=== PATIENT | female | born 2005 | race Caucasian/White ===

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

== ENCOUNTER 2023-04-14 05:05 | Inpatient (IN) | payer OTHER, MEDICAID, SELFPAY ==
[2023-04-14] VITALS (40 sets, daily range): BP systolic 97–157; BP diastolic 55–86; PULSE 85–128; RESP 11–34; TEMP 36.4–37.3; O2SAT 94–100; BMI 26.6; BMI 25.3
--- NOTE | 2023-04-14 05:20 | DI.RAD.S_ITS ---
PROCEDURE: XR CHEST 1V INDICATIONS: chest pain TECHNIQUE: One view of the chest was acquired. COMPARISON: [facility], CR, XR CHEST 2V, 12/20/2022, 14:00. FINDINGS: Surgical changes and devices: None. Lungs and pleura: Lungs are clear. No pleural effusions or pneumothorax. Mediastinum: Mediastinal contours appear normal. Heart size is normal. Bones and chest wall: No suspicious bony lesions. Overlying soft tissues appear unremarkable. IMPRESSION: No acute cardiopulmonary abnormality. This report is concordant with the overnight preliminary interpretation. Dictated by: Marcos Marion M.D. on 04/14/2023 at 7:41 Approved by: Marcos Marion M.D. on 04/14/2023 at 7:42
--- NOTE | 2023-04-14 05:27 | ED_ITS ---
HPI - Altered Mental Status General Chief Complaint: Diabetic Problem Stated Complaint: dka Time Seen by Provider: 04/14/23 05:20 History of Present Illness HPI narrative: Patient is a 18-year-old female history of insulin-dependent diabetes presenting today with altered mental status and elevated glucose. He reports that she has been busy helping set up for a posterior event and has not been taking care of herself. At 1:00 a.m. she did not feel very well checked her glucose and it was 550. She now feels like she is having extreme chest pain she describes it as sharp and stabbing. She admits to smoking marijuana. She is previously been in the ED for alcohol intoxication. Admits to mental problems but unclear exactly what those are. She denies being sick no fever or chills no cough shortness of breath her superior she is having a FT orbital pain nausea or vomiting. Patient went to [place] and mom looked at the insulin pump and reports that she did not get insulin April 04 through April 11. And since then she has only been getting anywhere from 7-15 units subcutaneously. Related Data Home Medications Medication Instructions Recorded Confirmed escitalopram oxalate 10 mg tablet 10 mg PO DAILY 04/14/23 04/14/23 lamotrigine 25 mg tablet 25 mg PO 2XD 04/14/23 04/14/23 Allergies Allergy/AdvReac Type Severity Reaction Status Date / Time No Known Drug Allergies Allergy Unverified 10/09/21 18:12 Patient History Social History household members: family Smoking Status: Never smoker Smoking Status: Never smoker alcohol intake frequency: other Exam Initial Vital Signs Initial Vital Signs: Vital Signs Temperature 98.5 F 04/14/23 05:26 Pulse Rate 114 H 04/14/23 05:26 Respiratory Rate 26 H 04/14/23 05:26 Blood Pressure 140/86 04/14/23 05:26 Pulse Oximetry 98 04/14/23 05:26 Oxygen Delivery Method Room Air 04/14/23 05:26 GENERAL: Pale ill-appearing 18-year-old female and in no acute distress. HEENT: Head atraumatic,EOMI, pupils reactive, face symmetric, moist mucous membranes CARDIOVASCULAR: Tachycardic regular no murmur RESPIRATORY: Breath sounds equal bilaterally, no wheezes rales or rhonchi. ABDOMEN: Soft, nontender. Normoactive bowel sounds all 4 quadrants. No guarding or rebound. EXTREMITIES: Normal range of motion, no clubbing or edema. Neurovascularly intact NEUROLOGICAL: Alert and oriented x4.Normal gait and speech. Moving all extremities SKIN: Warm, dry, no laceration, no petechiae, no rashes or lesions. Course Orders Ordered: Acetaminophen (Acetaminophen 325 Mg Tablet) 650 mg PO Q4H PRN PRN Reason: Fever/Mild Pain (1-3) Escitalopram Oxalate (Escitalopram 10 Mg Tablet) 10 mg PO DAILY SAVAGE Sodium Chloride (Normal Saline 0.9%) 1,000 mls @ 100 mls/hr IV CONT SAVAGE Last Infusion: 04/14/23 11:30 Dose: Infused Documented By: Admin: 04/14/23 10:30 Dose: 100 mls/hr Documented By: KATHRIN INSULIN DRIP PREMIX (Myxredlin Drip Premix) 100 unit in 100 mls @ 7.031 mls/hr IV TITRATE SAVAGE; Protocol Last Admin: 04/14/23 12:39 Dose: 0.1 unit/kg/hr, 6.7 mls/hr Documented By: KOTA Co-signed By: VIOLETA Dextrose/Sodium Chloride (Dextrose 5%-0.45% Ns) 1,000 mls @ 100 mls/hr IV CONT SAVAGE Last Admin: 04/14/23 14:01 Dose: 100 mls/hr Documented By: KOTA Piperacillin Sod/Tazobactam (Sod 4.5 gm/ Sodium Chloride) 100 mls @ 25 mls/hr IV Q8H SAVAGE Last Admin: 04/14/23 16:14 Dose: 25 mls/hr Documented By: KOTA Sodium Chloride (Normal Saline 0.9%) 1,000 mls @ 500 mls/hr IV BOLUS ONE Stop: 04/14/23 18:29 Last Admin: 04/14/23 16:31 Dose: 500 mls/hr Documented By: KOTA Lamotrigine (Lamotrigine 100 Mg Tablet) 25 mg PO BID SAVAGE Naloxone HCl (Naloxone 0.4 Mg/Ml Vial) 0.2 mg IV Q2MIN PRN PRN Reason: Opiate Reversal Ondansetron HCl (Ondansetron 4 Mg/2 Ml Inj) 4 mg IV Q4HR PRN PRN Reason: Nausea And Vomiting Discontinued Medications Sodium Chloride (Normal Saline 0.9%) 1,000 mls @ 1,000 mls/hr IV BOLUS ONE Stop: 04/14/23 06:19 Last Infusion: 04/14/23 06:56 Dose: Infused Documented By: Admin: 04/14/23 05:34 Dose: 1,000 mls/hr Documented By: KRISH INSULIN DRIP PREMIX (Myxredlin Drip Premix) 100 unit in 100 mls @ 7.031 mls/hr IV TITRATE SAVAGE; Protocol Last Admin: 04/14/23 12:06 Dose: 0.1 unit/kg/hr, 7.031 mls/hr Documented By: KOTA Co-signed By: VIOLETA Titration: 04/14/23 12:06 Dose: Infused Documented By: KOTA Co-signed By: VIOLETA Titration: 04/14/23 11:45 Dose: 0.1 unit/kg/hr, 7.031 mls/hr Documented By: KATHRIN Co-signed By: YA Titration: 04/14/23 11:04 Dose: 0.1 unit/kg/hr, 7.031 mls/hr Documented By: SPF Co-signed By: YA Titration: 04/14/23 07:13 Dose: 0.15 unit/kg/hr, 10.5 mls/hr Documented By: MAJO Co-signed By: SPF Admin: 04/14/23 06:24 Dose: 0.1 unit/kg/hr, 7.031 mls/hr Documented By: MAJO Co-signed By: WILLA Calcium Chloride 1,000 mg/ (Sodium Chloride) 110 mls @ 110 mls/hr IV NOW ONE Stop: 04/14/23 06:06 Last Infusion: 04/14/23 08:05 Dose: Infused Documented By: Admin: 04/14/23 06:44 Dose: 110 mls/hr Documented By: ES Piperacillin Sod/Tazobactam (Sod 4.5 gm/ Sodium Chloride) 100 mls @ 200 mls/hr IV NOW ONE Stop: 04/14/23 06:06 Last Infusion: 04/14/23 07:36 Dose: Infused Documented By: Admin: 04/14/23 06:41 Dose: 200 mls/hr Documented By: MAJO Sodium Chloride (Normal Saline 0.9%) 1,641 mls @ 547 mls/hr 30 ml/kg infuse over 3 hr (1641 ml) IV NOW ONE Stop: 04/14/23 09:04 Last Infusion: 04/14/23 10:06 Dose: Infused Documented By: Admin: 04/14/23 06:40 Dose: 547 mls/hr Documented By: MAJO Dextrose/Sodium Chloride (Dextrose 5%-0.45% Ns) 1,000 mls @ 105 mls/hr IV CONT SAVAGE Last Infusion: 04/14/23 11:45 Dose: 105 mls/hr Documented By: Admin: 04/14/23 11:28 Dose: 105 mls/hr Documented By: YA Dextrose (D10w) 1,000 mls @ 134 mls/hr IV CONT SAVAGE Last Admin: 04/14/23 14:01 Dose: Not Given Documented By: KOTA Sodium Chloride (Normal Saline 0.9%) 1,000 mls @ 500 mls/hr IV BOLUS ONE Stop: 04/14/23 16:07 Last Admin: 04/14/23 14:14 Dose: 500 mls/hr Documented By: KOTA Ketorolac Tromethamine (Ketorolac 30 Mg/Ml Vial) 15 mg IV NOW ONE Stop: 04/14/23 05:48 Last Admin: 04/14/23 06:07 Dose: 15 mg Documented By: MAJO Sodium Chloride (Sodium Chloride 0.9% 500 Ml) 2,000 ml IV Q4HR ONE Stop: 04/14/23 14:03 Vital Signs Vital signs: Vital Signs - 8 hr 04/14/23 05:26 04/14/23 05:28 04/14/23 05:30 Temperature 98.5 F Pulse Rate 114 H 115 H Respiratory Rate 26 H 28 H Blood Pressure 140/86 157/74 H Pulse Oximetry 98 99 Oxygen Delivery Method Room Air 04/14/23 05:30 04/14/23 06:00 04/14/23 06:00 Temperature Pulse Rate 112 H 119 H Respiratory Rate 24 22 Blood Pressure 147/69 H Pulse Oximetry 99 100 Oxygen Delivery Method 04/14/23 06:30 04/14/23 06:33 04/14/23 06:33 Temperature Pulse Rate 112 H 109 H Respiratory Rate 22 21 Blood Pressure 154/67 H Pulse Oximetry 99 100 Oxygen Delivery Method 04/14/23 07:00 04/14/23 07:00 Temperature Pulse Rate 116 H Respiratory Rate 20 Blood Pressure 146/67 H Pulse Oximetry 99 Oxygen Delivery Method MDM - Altered Mental Status Lab Data 04/14/23 05:20 04/14/23 15:50 Labs: Lab Results 04/14/23 04/14/23 04/14/23 Range/Units 05:20 06:31 06:56 WBC 31.4 H* (4.5-11.0) X10^3/uL RBC 5.55 H (4.0-5.2) X10^6/uL Hgb 16.1 H (12.0-16.0) g/dL Hct 51.0 H (36-46) % MCV 91.9 (80-100) fL MCH 29.0 (26-34) PG MCHC 31.6 (30-36) % RDW 13.5 (11.6-14.8) % Plt Count 525 H (150-400) X10^3/uL Neut % (Auto) Not Reportable Lymph % (Auto) Not Reportable [place] % (Auto) Not Reportable Eos % (Auto) Not Reportable Baso % (Auto) Not Reportable Lymph # (Auto) Not Reportable [place] # (Auto) Not Reportable Baso # (Auto) Not Reportable Total Counted 100 Seg Neutrophils % 79.0 H (38-70) % Band Neutrophils % 1.0 L (3-7) % Lymphocytes % (Manual) 11.0 L (25-45) % Monocytes % (Manual) 7.0 (2-11) % Metamyelocytes % 2.0 H (-0) % Neutrophils # (Manual) 81934 H (1891-3285) /uL Platelet Estimate Increased on smear RBC Morphology Normal morphology VBG pH 7.01 L* (7.33-7.43) VBG pCO2 23.2 L (45-50) mmHg VBG pO2 61 H (35-45) mmHg VBG HCO3 6 L (24-28) mmol/L VBG Total CO2 6 L (24-29) mmol/L VBG O2 Saturation 77 H (70-75) % VBG Base Excess -25.0 L (0-4) mmol/L Sodium 136 L (137-145) mmol/L Potassium 6.7 H* (3.4-5.1) mmol/L Chloride 99 (98-107) mmol/L Carbon Dioxide < 5 L* (22-32) mmol/L BUN 24 H (7-17) mg/dL Creatinine 1.12 H (0.52-1.04) mg/dL Estimated GFR > 60 (>60) mL/min BUN/Creatinine Ratio 21.4 (6-22) Glucose 655 H* (70-100) mg/dL Lactate 5.3 H* (0.7-2.1) mmol/L Calcium 10.2 (8.4-10.2) mg/dL Magnesium 2.5 H (1.6-2.3) mg/dL Total Bilirubin 0.7 (0.2-1.3) mg/dL AST 41 H (14-36) IU/L ALT 42 H (<35) IU/L Alkaline Phosphatase 186 H (38-126) U/L Total Creatine Kinase 37 (30-135) U/L Troponin I < 0.012 (0.01-0.034) ng/mL Total Protein 10.3 H (6.3-8.2) g/dL Albumin 5.4 H (3.5-5.0) g/dL Globulin 4.9 H (1.7-4.1) g/dL Albumin/Globulin Ratio 1.1 (1.0-2.8) Lipase 35 (23-300) U/L HCG, Quant < 2.4 mIU/mL Urine RBC 0-1/hpf (0-5/HPF) Urine WBC None seen (0-5/HPF) Ur Squamous Epith Cells 0-1 /hpf (0-5/HPF) Urine Bacteria None seen (None) Ur Culture Indicated? Cult not indicated U Opiates 300ng/mL cut Negative (Negative) Ur Oxycodone Screen Negative (Negative) Urine Methadone Screen Negative (Negative) Ur Barbiturates Screen Negative (Negative) U Tricyclic Antidepress Negative (Negative) Ur Phencyclidine Scrn Negative (Negative) Ur Amphetamines Screen Negative (Negative) U Methamphetamines Scrn Negative (Negative) Ur MDMA Scrn (Ecstasy) Negative (Negative) U Benzodiazepines Scrn Negative (Negative) Urine Cocaine Screen Negative (Negative) U Marijuana (THC) Screen Negative (Negative) Ethyl Alcohol < 10 ( - 10) mg/dL Ketones 9.10 H (<0.27) mmol/L SARS-CoV-2 (PCR) Negative (Negative) Influenza A (RT-PCR) Flu a negative (NEGATIVE) Influenza B (RT-PCR) Flu b negative (NEGATIVE) RSV (PCR) Negative (Negative) Point of Care Testing Test Results Negative Glucose POC 288 Urine Dip Bedside Urine Glucose 1000 mg/dl Bedside Urine Bilirubin - Negative Bedside Urine Ketone +++ 80 Urine Specific [place] 1.020 Bedside Urine Occult Blood + Bedside Urine pH 5.5 Bedside Urine Protein +/- 15 Bedside Urine Urobilinogen - Negative Bedside Urine Nitrite - Negative Bedside Urine Leukocytes - Negative Esterase Imaging Data Chest x-ray: Radiologist's Impression: No acute cardiopulmonary process ECG Data Interpretation: Sinus tachycardia rate 122 AR interval 130 QRS [address] changes MDM Narrative Medical decision making narrative: 18-year-old female poorly controlled insulin-dependent diabetic presents today with chest pain no elevated glucose at home. In the ED POC glucoses greater than 500 she is tachycardic and tachypneic. Concern for DKA. Bedside venous pH shows 7.0. Immediately IV fluids. Labs confirm glucose 655 bicarb undetectable potassium 6.7, glucose 136 creatinine 1.12. Anion gap calculated at 36 leukocytosis at 31.4, lactate 5.3 Patient has obvious DKA secondary to noncompliance. Concern with for sepsis with significantly elevated leukocytosis and lactate. Potassium at 6.7 she is given calcium for cardiac stabilization I suspect with IV fluids and insulin that will come down. Blood cultures pending she is given a dose of Zosyn empirically. She is not febrile. Critical Care Time Critical Care Time Critical Care Time: Yes Total Critical Care Time: 45 Attestation: The high probability of a clinically significant, sudden or life threatening deterioration of the [cardiovascular] system(s) required my full and direct attention, intervention and personal management. The aggregate critical care time was [45] minutes. This time is in addition to time spent performing reported procedures but includes the following: [x] Data Review and interpretation [x] Patient assessment and monitoring of vital signs [x] Documentation [x] Medication orders and management Discharge Plan Departure Patient Disposition: Admitted As Inpatient Clinical Impression: DKA (diabetic ketoacidosis) Qualifiers: Diabetes mellitus type: type 1 Diabetes mellitus complication detail: without coma Qualified Code(s): E10.10 - Type 1 diabetes mellitus with ketoacidosis without coma Sepsis Qualifiers: Sepsis acute organ dysfunction status: with acute organ dysfunction Admit Date/Time: 04/14/23 07:36 Admit Provider: Clari Cruz
[2023-04-14] MEDS: SODIUM CHLORIDE 0.9% 1,000 ML 1000 ML IV (05:34)
[2023-04-14 05:44] LABS: HCO3 VBG 6 mmol/L (24-28); Oxygen Saturation VBG 77 % (70-75); PCO2 VBG 23.2 mmHg (45-50); PO2 VBG 61 mmHg (35-45); Total CO2 VBG 6 mmol/L (24-29); pH VBG 7.01 (7.33-7.43)
[2023-04-14 05:51] LABS: Alanine Aminotransferase 42 IU/L (<35); Albumin 5.4 g/dL (3.5-5.0); Albumin Globulin Ratio 1.1 (1.0-2.8); Alkaline Phosphatase 186 U/L (38-126); Aspartate Aminotransferase 41 IU/L (14-36); BUN Creatinine Ratio 21.4 (6-22); Bilirubin Total 0.7 mg/dL (0.2-1.3); Blood Urea Nitrogen 24 mg/dL (7-17); Calcium 10.2 mg/dL (8.4-10.2); Chloride 99 mmol/L (98-107); Creatine Kinase 37 U/L (30-135); Estimated Glomerular Filt Rate > 60 mL/min (>60); Globulin 4.9 g/dL (1.7-4.1); Sodium 136 mmol/L (137-145); Total Protein 10.3 g/dL (6.3-8.2)
[2023-04-14 05:53] LABS: Hemoglobin 16.1 g/dL (12.0-16.0); Mean Corpuscular HGB Conc 31.6 % (30-36); Mean Corpuscular Volume 91.9 fL (80-100); Platelet Count 525 X10^3/uL (150-400); Red Blood Cell Count 5.55 X10^6/uL (4.0-5.2); Red Cell Distribution Width 13.5 % (11.6-14.8)
[2023-04-14 05:58] LABS: HEMOLYSIS 27 (0-50)
[2023-04-14 06:03] LABS: Troponin I < 0.012 ng/mL (0.01-0.034)
[2023-04-14 06:05] LABS: Lactate (Lactic Acid) 5.3 mmol/L (0.7-2.1)
[2023-04-14 06:06] LABS: Carbon Dioxide < 5 mmol/L (22-32); Glucose 655 mg/dL (70-100); Potassium 6.7 mmol/L (3.4-5.1)
[2023-04-14 06:07] LABS: Add Manual Diff / Slide Review YES; Ethanol (ETOH) < 10 mg/dL; White Blood Cell Count 31.4 X10^3/uL (4.5-11.0)
[2023-04-14] MEDS: KETOROLAC 30 MG/ML VIAL 15 MG IV (06:07)
[2023-04-14 06:18] LABS: Neutrophils Absolute Manual 25120 /uL (3000-5900); Platelet Estimate Increased on smear; RBC Morphology Normal Morphology; Total Cells Counted 100
[2023-04-14 06:19] LABS: Magnesium 2.5 mg/dL (1.6-2.3)
[2023-04-14 06:22] LABS: Lipase 35 U/L (23-300)
[2023-04-14] MEDS: INSULIN DRIP PREMIX 100 UNIT/100 ML PLAST..BAG 7.031 UNIT IV ×2 (06:24→12:06)
[2023-04-14] MEDS: SODIUM CHLORIDE 0.9% 1,641 ML 547 ML IV (06:40)
[2023-04-14 06:41] LABS: Ur Creatinine Normal (Normal); Ur Specific Gravity Normal (Normal); Urine pH Normal (Normal)
[2023-04-14] MEDS: PIPERACILLIN/TAZO 4.5 GM in SODIUM CHLORIDE 0.9% 100 ML IV ×2 (06:41→16:14)
[2023-04-14 06:42] LABS: UR Morphine/Opiate cutoff 300 Negative (Negative); Urine Amphetamines Negative (Negative); Urine Barbiturates Negative (Negative); Urine Benzodiazepines Negative (Negative); Urine Cocaine Negative (Negative); Urine MDMA Negative (Negative); Urine Methadone Negative (Negative); Urine Methamphetamines Negative (Negative); Urine Oxycodone Negative (Negative); Urine Phencyclidine Negative (Negative); Urine Tetrahydrocannabinol Negative (Negative); Urine Tricyclic Antidepressant Negative (Negative)
[2023-04-14] MEDS: CALCIUM CHLORIDE 1,000 MG in SODIUM CHLORIDE 0.9% 100 ML 110 MG IV (06:44)
[2023-04-14 06:53] LABS: Bacteria Urine None Seen; Culture Indicated Urine Cult Not Indicated; RBC Urine 0-1/HPF (0-5/HPF); Squamous Epithelial Cell Urine 0-1 /HPF (0-5/HPF); WBC Urine None Seen (0-5/HPF)
[2023-04-14 06:59] LABS: HCG Quantitative /Beta subunit < 2.4 mIU/mL
[2023-04-14 07:14] LABS: Reflexed Lactate in 2 Hours Y
[2023-04-14 07:43] LABS: Influenza A - CEPHEID Flu A NEGATIVE (NEGATIVE); Influenza B - CEPHEID Flu B NEGATIVE (NEGATIVE); Respiratory Syncytial Virus Negative (Negative)
[2023-04-14 07:44] LABS: COVID-19 CEPHEID 4-PLEX PCR Negative (Negative)
[2023-04-14 08:02] LABS: Lactate 2HR (Lactic Acid Rflx) 3.8 mmol/L (0.7-2.1)
[2023-04-14] MEDS: SODIUM CHLORIDE 0.9% 1,000 ML 100 ML IV (10:30)
[2023-04-14 10:46] LABS: pH VBG 7.11 (7.33-7.43)
[2023-04-14 10:54] LABS: Fractionated Inspired Oxygen 21; HCO3 VBG 5 mmol/L (24-28); Oxygen Saturation VBG 89 % (70-75); PO2 VBG 73 mmHg (35-45); Total CO2 VBG 5 mmol/L (24-29)
[2023-04-14 11:04] LABS: BUN Creatinine Ratio 20.4 (6-22); Blood Urea Nitrogen 21 mg/dL (7-17); Calcium 9.5 mg/dL (8.4-10.2); Chloride 113 mmol/L (98-107); Estimated Glomerular Filt Rate > 60 mL/min (>60); Glucose 318 mg/dL (70-100); HEMOLYSIS < 15 (0-50); Lactate (Lactic Acid) 1.8 mmol/L (0.7-2.1); Potassium 5.2 mmol/L (3.4-5.1); Sodium 139 mmol/L (137-145)
[2023-04-14 11:05] LABS: Carbon Dioxide < 5 mmol/L (22-32)
[2023-04-14] MEDS: DEXTROSE 5%-0.45% NS 1,000 ML 105 ML IV (11:28)
[2023-04-14] MEDS: INSULIN DRIP PREMIX 100 UNIT/100 ML PLAST..BAG 6.7 UNIT IV (12:39)
--- NOTE | 2023-04-14 13:09 | PM.CN.EICU ---
History of Present Illness Consult details IF CAMERA ACTIVATED, patient seen via real-time interactive audiovisual communication: Camera activated Date Patient Seen: 04/14/23 Chief complaint: dka Reason for consult: DKA Requesting provider: Clari Cruz Consent obtained for tele-central office equipment installer care: Yes Patient Location: ICU Provider location (State): [place] Other participants/roles: case d/w bedside RN Narrative: 18 yo F with pmHx of Type 1 DM, with insulin pump. Has had malfunction of insulin pump while traveling out of [facility]. Has not been getting adequate insulin dosing Presented to ED feeling unwell with sharp chest pain- noted BG at home in 500's. Denied fever, cough, sob EKG ST, no ischemic changes. In ED found to be in DKA with ph 7.01 on VBG. AG 36. Hyperkalemia, elevated Cr, LA, WBC, LFT's tox and ETOH neg neg covid, flu Started on fluids and insulin gtt per DKA protocol Calcium given for K 6.7, which has now come down on repeat Zosyn given empirically while cultures pending given elevated WBC and LA- UA neg PFSH Social History household members: family Smoking Status: Never smoker Current Medications Current Medications Medications: Home Medications insulin lispro 100 unit/mL subcutaneous half-unit pen (Humalog Benjamín KwikPen (U-100)) 1 sliding scale dose SUBCUT USEASDIRECTD 10/09/21 [History Confirmed 10/09/21] Visit Medications (administered) Generic Name Dose Route Start Last Admin Trade Name Freq PRN Reason Stop Dose Admin Sodium Chloride 1,000 mls @ 100 mls/hr 04/14/23 10:30 04/14/23 11:30 Normal Saline 0.9% IV Infused CONT SAVAGE Infusion INSULIN DRIP PREMIX 100 unit in 100 mls @ 7.031 mls/hr 04/14/23 12:15 04/14/23 12:39 Myxredlin Drip Premix IV 0.1 unit/kg/hr TITRATE SAVAGE 6.7 mls/hr Administration Protocol 0.1 UNIT/KG/HR Review of Systems Review of Systems Narrative: as per HPI Exam Vital Signs (past 8 hours): - 04/14/23 05:26 04/14/23 05:28 04/14/23 05:30 Temperature 98.5 F Pulse Rate 114 H 115 H Respiratory Rate 26 H 28 H Blood Pressure 140/86 157/74 H Pulse Oximetry 98 99 Oxygen Delivery Method Room Air 04/14/23 05:30 04/14/23 06:00 04/14/23 06:00 Temperature Pulse Rate 112 H 119 H Respiratory Rate 24 22 Blood Pressure 147/69 H Pulse Oximetry 99 100 Oxygen Delivery Method 04/14/23 06:30 04/14/23 06:33 04/14/23 06:33 Temperature Pulse Rate 112 H 109 H Respiratory Rate 22 21 Blood Pressure 154/67 H Pulse Oximetry 99 100 Oxygen Delivery Method 04/14/23 07:00 04/14/23 07:00 04/14/23 07:30 Temperature Pulse Rate 116 H 114 H Respiratory Rate 20 19 Blood Pressure 146/67 H Pulse Oximetry 99 100 Oxygen Delivery Method Room Air 04/14/23 07:30 04/14/23 08:00 04/14/23 08:00 Temperature Pulse Rate 118 H Respiratory Rate 21 Blood Pressure 147/67 H 148/69 H Pulse Oximetry 98 Oxygen Delivery Method 04/14/23 08:30 04/14/23 08:30 04/14/23 09:00 Temperature Pulse Rate 123 H 121 H Respiratory Rate 19 20 Blood Pressure 147/69 H Pulse Oximetry 100 99 Oxygen Delivery Method Room Air 04/14/23 09:00 04/14/23 09:30 04/14/23 09:30 Temperature Pulse Rate 128 H Respiratory Rate 21 Blood Pressure 123/55 L 147/65 H Pulse Oximetry 100 Oxygen Delivery Method Room Air 04/14/23 10:00 04/14/23 10:00 04/14/23 10:30 Temperature Pulse Rate 123 H Respiratory Rate 23 Blood Pressure 123/56 L 118/55 L Pulse Oximetry 100 Oxygen Delivery Method 04/14/23 10:30 04/14/23 11:00 04/14/23 11:00 Temperature Pulse Rate 114 H 126 H Respiratory Rate 16 20 Blood Pressure 121/59 L Pulse Oximetry 100 100 Oxygen Delivery Method 04/14/23 11:30 04/14/23 12:29 Temperature Pulse Rate 125 H Respiratory Rate 20 Blood Pressure Pulse Oximetry 100 Oxygen Delivery Method Room Air Room Air Oxygen Delivery Method Room Air Narrative Exam Narrative: sleeping comfortably. no distress. ST 114 on tele. sat 100%. MAP 77 Objective Labs 04/14/23 05:20 04/14/23 10:30 Labs: Laboratory Results - last 24 hr 04/14/23 04/14/23 04/14/23 05:20 06:31 06:56 WBC 31.4 H* RBC 5.55 H Hgb 16.1 H Hct 51.0 H MCV 91.9 MCH 29.0 MCHC 31.6 RDW 13.5 Plt Count 525 H Neut % (Auto) Not Reportable Lymph % (Auto) Not Reportable Garrett % (Auto) Not Reportable Eos % (Auto) Not Reportable Baso % (Auto) Not Reportable Lymph # (Auto) Not Reportable Garrett # (Auto) Not Reportable Baso # (Auto) Not Reportable Total Counted 100 Seg Neutrophils % 79.0 H Band Neutrophils % 1.0 L Lymphocytes % (Manual) 11.0 L Monocytes % (Manual) 7.0 Metamyelocytes % 2.0 H Neutrophils # (Manual) 29144 H Platelet Estimate Increased on smear RBC Morphology Normal morphology VBG pH 7.01 L* VBG pCO2 23.2 L VBG pO2 61 H VBG HCO3 6 L VBG Total CO2 6 L VBG O2 Saturation 77 H VBG Base Excess -25.0 L FiO2 Sodium 136 L Potassium 6.7 H* Chloride 99 Carbon Dioxide < 5 L* BUN 24 H Creatinine 1.12 H Estimated GFR > 60 BUN/Creatinine Ratio 21.4 Glucose 655 H* Lactate 5.3 H* Calcium 10.2 Magnesium 2.5 H Total Bilirubin 0.7 AST 41 H ALT 42 H Alkaline Phosphatase 186 H Total Creatine Kinase 37 Troponin I < 0.012 Total Protein 10.3 H Albumin 5.4 H Globulin 4.9 H Albumin/Globulin Ratio 1.1 Lipase 35 HCG, Quant < 2.4 Urine RBC 0-1/hpf Urine WBC None seen Ur Squamous Epith Cells 0-1 /hpf Urine Bacteria None seen Ur Culture Indicated? Cult not indicated U Opiates 300ng/mL cut Negative Ur Oxycodone Screen Negative Urine Methadone Screen Negative Ur Barbiturates Screen Negative U Tricyclic Antidepress Negative Ur Phencyclidine Scrn Negative Ur Amphetamines Screen Negative U Methamphetamines Scrn Negative Ur MDMA Scrn (Ecstasy) Negative U Benzodiazepines Scrn Negative Urine Cocaine Screen Negative U Marijuana (THC) Screen Negative Ethyl Alcohol < 10 Ketones 9.10 H SARS-CoV-2 (PCR) Negative Influenza A (RT-PCR) Flu a negative Influenza B (RT-PCR) Flu b negative RSV (PCR) Negative 04/14/23 04/14/23 04/14/23 07:39 10:30 11:35 WBC RBC Hgb Hct MCV MCH MCHC RDW Plt Count Neut % (Auto) Lymph % (Auto) Garrett % (Auto) Eos % (Auto) Baso % (Auto) Lymph # (Auto) Garrett # (Auto) Baso # (Auto) Total Counted Seg Neutrophils % Band Neutrophils % Lymphocytes % (Manual) Monocytes % (Manual) Metamyelocytes % Neutrophils # (Manual) Platelet Estimate RBC Morphology VBG pH 7.11 L* VBG pCO2 Not Reportable VBG pO2 73 H VBG HCO3 5 L VBG Total CO2 5 L VBG O2 Saturation 89 H VBG Base Excess -25.0 L FiO2 21 Sodium 139 Potassium 5.2 H D Chloride 113 H Carbon Dioxide < 5 L* BUN 21 H Creatinine 1.03 Estimated GFR > 60 BUN/Creatinine Ratio 20.4 Glucose 318 H D Lactate 3.8 H 1.8 Calcium 9.5 Magnesium Total Bilirubin AST ALT Alkaline Phosphatase Total Creatine Kinase Troponin I Total Protein Albumin Globulin Albumin/Globulin Ratio Lipase HCG, Quant Urine RBC Urine WBC Ur Squamous Epith Cells Urine Bacteria Ur Culture Indicated? U Opiates 300ng/mL cut Ur Oxycodone Screen Urine Methadone Screen Ur Barbiturates Screen U Tricyclic Antidepress Ur Phencyclidine Scrn Ur Amphetamines Screen U Methamphetamines Scrn Ur MDMA Scrn (Ecstasy) U Benzodiazepines Scrn Urine Cocaine Screen U Marijuana (THC) Screen Ethyl Alcohol Ketones SARS-CoV-2 (PCR) Influenza A (RT-PCR) Influenza B (RT-PCR) RSV (PCR) Assessment & Plan Assessment and plan (1) DKA (diabetic ketoacidosis): Qualifiers: Diabetes mellitus type: type 1 Diabetes mellitus complication detail: without coma Qualified Code(s): E10.10 - Type 1 diabetes mellitus with ketoacidosis without coma Status: Acute (2) Sepsis: Qualifiers: Sepsis acute organ dysfunction status: with acute organ dysfunction Status: Acute (3) Type 1 diabetes mellitus without complication: Problem details: Endocrine appt (scanned) 06/26/16 Status: None (4) KATYA (acute kidney injury): Status: Acute (5) Hyperkalemia: Status: Acute Assessment & Plan narrative: DKA continue DKA protocol, insulin gtt Continue aggressive hydration given signs of significant dehydration- labs show likely hemoconcentration- LA most likely elevated secondary to hypovolemia Trend BMP q 6 hours R/o Sepsis Initial concern for sepsis given elevated LA and WBC. i suspect this is related to DKA, less likely infection however, will cover with abx for now follow up blood cultures check procalcitonin COVID-19 Result date/Date tested (Pos, Neg/Pending): 04/14/23 Time Spent With Patient Time with patient: 30 to 49 minutes with 50% spent counseling/coordinating care
[2023-04-14 13:33] LABS: MRSA (Nasal) PCR Not Detected (Not Detect)
[2023-04-14] MEDS: DEXTROSE 5%-0.45% NS 1,000 ML 100 ML IV ×2 (14:01→21:02)
[2023-04-14] MEDS: SODIUM CHLORIDE 0.9% 1,000 ML 500 ML IV ×2 (14:14→16:31)
--- NOTE | 2023-04-14 14:42 | PM.HP.1 ---
History of Present Illness History of Present Illness Date Patient Seen: 04/14/23 Chief complaint: dka Narrative: Patient is a 18-year-old female history of insulin-dependent diabetes presenting today with altered mental status and elevated glucose. He reports that she has been busy helping set up for a posterior event and has not been taking care of herself. At 1:00 a.m. she did not feel very well checked her glucose and it was 550. She now feels like she is having extreme chest pain she describes it as sharp and stabbing. She admits to smoking marijuana. She is previously been in the ED for alcohol intoxication. Admits to mental problems but unclear exactly what those are. She denies being sick no fever or chills no cough shortness of breath her superior she is having a FT orbital pain nausea or vomiting. Patient went to [place] and mom looked at the insulin pump and reports that she did not get insulin April 04 through April 11. And since then she has only been getting anywhere from 7-15 units subcutaneously. Patient admitted with concern of DKA. [facility] Social History household members: family Smoking Status: Never smoker Meds Home Medications and Allergies Home Medications Medication Instructions Recorded Confirmed Type escitalopram oxalate 10 mg tablet 10 mg PO DAILY 04/14/23 04/14/23 History lamotrigine 25 mg tablet 25 mg PO 2XD 04/14/23 04/14/23 History Allergies Allergy/AdvReac Type Severity Reaction Status Date / Time No Known Drug Allergies Allergy Unverified 10/09/21 18:12 Review of Systems Review of Systems Narrative: Fourteen system review and pertinent findings in the HPI. Exam Vital Signs (past 8 hours): - 04/14/23 07:00 04/14/23 07:00 04/14/23 07:30 Temperature Pulse Rate 116 H 114 H Respiratory Rate 20 19 Blood Pressure 146/67 H Pulse Oximetry 99 100 Oxygen Delivery Method Room Air 04/14/23 07:30 04/14/23 08:00 04/14/23 08:00 Temperature Pulse Rate 118 H Respiratory Rate 21 Blood Pressure 147/67 H 148/69 H Pulse Oximetry 98 Oxygen Delivery Method 04/14/23 08:30 04/14/23 08:30 04/14/23 09:00 Temperature Pulse Rate 123 H 121 H Respiratory Rate 19 20 Blood Pressure 147/69 H Pulse Oximetry 100 99 Oxygen Delivery Method Room Air 04/14/23 09:00 04/14/23 09:30 04/14/23 09:30 Temperature Pulse Rate 128 H Respiratory Rate 21 Blood Pressure 123/55 L 147/65 H Pulse Oximetry 100 Oxygen Delivery Method Room Air 04/14/23 10:00 04/14/23 10:00 04/14/23 10:30 Temperature Pulse Rate 123 H Respiratory Rate 23 Blood Pressure 123/56 L 118/55 L Pulse Oximetry 100 Oxygen Delivery Method 04/14/23 10:30 04/14/23 11:00 04/14/23 11:00 Temperature Pulse Rate 114 H 126 H Respiratory Rate 16 20 Blood Pressure 121/59 L Pulse Oximetry 100 100 Oxygen Delivery Method 04/14/23 11:30 04/14/23 11:30 04/14/23 12:00 Temperature 99.2 F Pulse Rate 125 H 119 H Respiratory Rate 20 19 Blood Pressure Pulse Oximetry 100 100 Oxygen Delivery Method Room Air 04/14/23 12:29 04/14/23 12:30 04/14/23 13:00 Temperature Pulse Rate 121 H 120 H Respiratory Rate 17 18 Blood Pressure Pulse Oximetry 100 100 Oxygen Delivery Method Room Air 04/14/23 13:30 04/14/23 14:00 04/14/23 14:00 Temperature Pulse Rate 115 H 117 H Respiratory Rate 17 17 Blood Pressure 106/55 L Pulse Oximetry 100 99 Oxygen Delivery Method Oxygen Delivery Method Room Air Narrative Exam Narrative: GENERAL: in no acute distress. HEENT: Head atraumatic,EOMI, pupils reactive, face symmetric, moist mucous membranes CARDIOVASCULAR: Tachycardic regular no murmur RESPIRATORY: Breath sounds equal bilaterally, no wheezes rales or rhonchi. Respiratory rate has settle to normal. ABDOMEN: Soft, nontender. Normoactive bowel sounds all 4 quadrants. No guarding or rebound. EXTREMITIES: Normal range of motion, no clubbing or edema. Neurovascularly intact NEUROLOGICAL: Alert and oriented x4.Normal gait and speech. Moving all extremities SKIN: Warm, dry, no laceration, no petechiae, no rashes or lesions. Objective Labs 04/14/23 05:20 04/14/23 10:30 Labs: Laboratory Results - last 24 hr 04/14/23 04/14/23 04/14/23 05:20 06:31 06:56 WBC 31.4 H* RBC 5.55 H Hgb 16.1 H Hct 51.0 H MCV 91.9 MCH 29.0 MCHC 31.6 RDW 13.5 Plt Count 525 H Neut % (Auto) Not Reportable Lymph % (Auto) Not Reportable Marathon % (Auto) Not Reportable Eos % (Auto) Not Reportable Baso % (Auto) Not Reportable Lymph # (Auto) Not Reportable Marathon # (Auto) Not Reportable Baso # (Auto) Not Reportable Total Counted 100 Seg Neutrophils % 79.0 H Band Neutrophils % 1.0 L Lymphocytes % (Manual) 11.0 L Monocytes % (Manual) 7.0 Metamyelocytes % 2.0 H Neutrophils # (Manual) 75442 H Platelet Estimate Increased on smear RBC Morphology Normal morphology VBG pH 7.01 L* VBG pCO2 23.2 L VBG pO2 61 H VBG HCO3 6 L VBG Total CO2 6 L VBG O2 Saturation 77 H VBG Base Excess -25.0 L FiO2 Sodium 136 L Potassium 6.7 H* Chloride 99 Carbon Dioxide < 5 L* BUN 24 H Creatinine 1.12 H Estimated GFR > 60 BUN/Creatinine Ratio 21.4 Glucose 655 H* Lactate 5.3 H* Calcium 10.2 Magnesium 2.5 H Total Bilirubin 0.7 AST 41 H ALT 42 H Alkaline Phosphatase 186 H Total Creatine Kinase 37 Troponin I < 0.012 Total Protein 10.3 H Albumin 5.4 H Globulin 4.9 H Albumin/Globulin Ratio 1.1 Lipase 35 HCG, Quant < 2.4 Urine RBC 0-1/hpf Urine WBC None seen Ur Squamous Epith Cells 0-1 /hpf Urine Bacteria None seen Ur Culture Indicated? Cult not indicated Nasal Screen MRSA (PCR) U Opiates 300ng/mL cut Negative Ur Oxycodone Screen Negative Urine Methadone Screen Negative Ur Barbiturates Screen Negative U Tricyclic Antidepress Negative Ur Phencyclidine Scrn Negative Ur Amphetamines Screen Negative U Methamphetamines Scrn Negative Ur MDMA Scrn (Ecstasy) Negative U Benzodiazepines Scrn Negative Urine Cocaine Screen Negative U Marijuana (THC) Screen Negative Ethyl Alcohol < 10 Ketones 9.10 H SARS-CoV-2 (PCR) Negative Influenza A (RT-PCR) Flu a negative Influenza B (RT-PCR) Flu b negative RSV (PCR) Negative 04/14/23 04/14/23 04/14/23 07:39 10:30 11:35 WBC RBC Hgb Hct MCV MCH MCHC RDW Plt Count Neut % (Auto) Lymph % (Auto) Marathon % (Auto) Eos % (Auto) Baso % (Auto) Lymph # (Auto) Marathon # (Auto) Baso # (Auto) Total Counted Seg Neutrophils % Band Neutrophils % Lymphocytes % (Manual) Monocytes % (Manual) Metamyelocytes % Neutrophils # (Manual) Platelet Estimate RBC Morphology VBG pH 7.11 L* VBG pCO2 Not Reportable VBG pO2 73 H VBG HCO3 5 L VBG Total CO2 5 L VBG O2 Saturation 89 H VBG Base Excess -25.0 L FiO2 21 Sodium 139 Potassium 5.2 H D Chloride 113 H Carbon Dioxide < 5 L* BUN 21 H Creatinine 1.03 Estimated GFR > 60 BUN/Creatinine Ratio 20.4 Glucose 318 H D Lactate 3.8 H 1.8 Calcium 9.5 Magnesium Total Bilirubin AST ALT Alkaline Phosphatase Total Creatine Kinase Troponin I Total Protein Albumin Globulin Albumin/Globulin Ratio Lipase HCG, Quant Urine RBC Urine WBC Ur Squamous Epith Cells Urine Bacteria Ur Culture Indicated? Nasal Screen MRSA (PCR) U Opiates 300ng/mL cut Ur Oxycodone Screen Urine Methadone Screen Ur Barbiturates Screen U Tricyclic Antidepress Ur Phencyclidine Scrn Ur Amphetamines Screen U Methamphetamines Scrn Ur MDMA Scrn (Ecstasy) U Benzodiazepines Scrn Urine Cocaine Screen U Marijuana (THC) Screen Ethyl Alcohol Ketones SARS-CoV-2 (PCR) Influenza A (RT-PCR) Influenza B (RT-PCR) RSV (PCR) 04/14/23 12:00 WBC RBC Hgb Hct MCV MCH MCHC RDW Plt Count Neut % (Auto) Lymph % (Auto) Marathon % (Auto) Eos % (Auto) Baso % (Auto) Lymph # (Auto) Marathon # (Auto) Baso # (Auto) Total Counted Seg Neutrophils % Band Neutrophils % Lymphocytes % (Manual) Monocytes % (Manual) Metamyelocytes % Neutrophils # (Manual) Platelet Estimate RBC Morphology VBG pH VBG pCO2 VBG pO2 VBG HCO3 VBG Total CO2 VBG O2 Saturation VBG Base Excess FiO2 Sodium Potassium Chloride Carbon Dioxide BUN Creatinine Estimated GFR BUN/Creatinine Ratio Glucose Lactate Calcium Magnesium Total Bilirubin AST ALT Alkaline Phosphatase Total Creatine Kinase Troponin I Total Protein Albumin Globulin Albumin/Globulin Ratio Lipase HCG, Quant Urine RBC Urine WBC Ur Squamous Epith Cells Urine Bacteria Ur Culture Indicated? Nasal Screen MRSA (PCR) Not detected U Opiates 300ng/mL cut Ur Oxycodone Screen Urine Methadone Screen Ur Barbiturates Screen U Tricyclic Antidepress Ur Phencyclidine Scrn Ur Amphetamines Screen U Methamphetamines Scrn Ur MDMA Scrn (Ecstasy) U Benzodiazepines Scrn Urine Cocaine Screen U Marijuana (THC) Screen Ethyl Alcohol Ketones SARS-CoV-2 (PCR) Influenza A (RT-PCR) Influenza B (RT-PCR) RSV (PCR) Assessment & Plan Assessment & Plan narrative: # hypergycemia concerning for DKA, glucose greater than 500 POA, acute - has not been taking insulin appropriately on recent trip and also after returning home - initiate DKA protocol - lactic acid elevated to 3.8 on presentation, pH 7.11 #fluid hydration - repeated NS boluses # Type 1 diabetes - normally on insulin pump - while in hospital provide sliding scale and hold use of pump - Hb A1Cs have been greater then 13 per patient on last two measurements, per patient she has just not been taking care of herself # concern for infection - elevated WBC 31.4 - blood cultures pending -covered with [id number] # anxiety/depression - treated with escitalopram and lamotrigine, patient finds they are of benefit - continue # nonadherence to medication use - patient by her own admission no taking insulin as should CODE: full code DVT: not needed Surrogate decision makers : parents Patient admitted as Inpatient with expectation hospital stay will be greater than 2 midnights. Time Spent With Patient Time with patient: 70 minutes or more, with 50% spent counseling/coordinating Quality VTE Deep Vein Thrombosis/Pulmonary Embolism Present on Admission: No MIPS - Admit I confirm the patient?s Advance Care Plan is present, Code status is documented, Surrogate decision maker is in patient?s record [If Yes, STOP here]: Yes MIPS - Meds 'Current medications' to include all prescriptions, [id number] products, herbals, cannabis/cannabidiol products, and vitamin/mineral/dietary (nutritional) supplements. I have utilized all available resources to obtain, update, or review the patient?s current medications. [If Yes, STOP here]: Yes
[2023-04-14 15:51] LABS: PCO2 VBG < 18.0 mmHg (45-50)
[2023-04-14 16:10] LABS: BUN Creatinine Ratio 25.3 (6-22); Blood Urea Nitrogen 19 mg/dL (7-17); Calcium 9.2 mg/dL (8.4-10.2); Carbon Dioxide 12 mmol/L (22-32); Chloride 113 mmol/L (98-107); Estimated Glomerular Filt Rate > 60 mL/min (>60); Glucose 217 mg/dL (70-100); HEMOLYSIS < 15 (0-50); Potassium 4.5 mmol/L (3.4-5.1); Sodium 138 mmol/L (137-145)
[2023-04-14] MEDS: POTASSIUM CHLORIDE IN WATER 10 MEQ/100 ML PIGGYBACK 100 MEQ IV ×3 (18:30→23:02)
--- NOTE | 2023-04-14 20:35 | P.ICUMDRN_ITS ---
- Date Patient Seen: 04/14/23 :: This patient was seen via real time interactive two-way audiovisual telecommunic ation. Note: Admitted for sepsis and DKA. On inuslin gtt and D51/2NS. Pending repeat BMP. Avoid NS infusion due to hyperchloremic NGMA. Will transition to lantus once AG <12 and Co2 >16. D/w bedside RN.
[2023-04-14] MEDS: lamoTRIgine 100 MG TABLET 25 MG PO (21:09)
[2023-04-14 21:58] LABS: Lactate (Lactic Acid) 1.4 mmol/L (0.7-2.1)
[2023-04-14 21:59] LABS: BUN Creatinine Ratio 24.6 (6-22); Blood Urea Nitrogen 16 mg/dL (7-17); Calcium 8.7 mg/dL (8.4-10.2); Carbon Dioxide 15 mmol/L (22-32); Chloride 114 mmol/L (98-107); Estimated Glomerular Filt Rate > 60 mL/min (>60); Glucose 176 mg/dL (70-100); HEMOLYSIS 16 (0-50); Potassium 4.3 mmol/L (3.4-5.1); Sodium 139 mmol/L (137-145)
[2023-04-15] VITALS (30 sets, daily range): BP systolic 97–128; BP diastolic 54–69; PULSE 78–114; RESP 15–33; TEMP 36.6–37.5; O2SAT 98–100; BMI 26.4
[2023-04-15] MEDS: PIPERACILLIN/TAZO 4.5 GM in SODIUM CHLORIDE 0.9% 100 ML IV
[2023-04-15] MEDS: POTASSIUM CHLORIDE IN WATER 10 MEQ/100 ML PIGGYBACK 100 MEQ IV ×5 (00:19→06:35)
[2023-04-15] MEDS: DEXTROSE 10 % IN WATER 1,000 ML 67 ML IV (01:16)
[2023-04-15 01:26] LABS: pH VBG 7.34 (7.33-7.43)
[2023-04-15 01:27] LABS: Fractionated Inspired Oxygen 21; HCO3 VBG 16 mmol/L (24-28); Oxygen Saturation VBG 97 % (70-75); PCO2 VBG 28.7 mmHg (45-50); PO2 VBG 93 mmHg (35-45); Total CO2 VBG 16 mmol/L (24-29)
[2023-04-15 01:29] LABS: BUN Creatinine Ratio 23.3 (6-22); Blood Urea Nitrogen 14 mg/dL (7-17); Calcium 8.8 mg/dL (8.4-10.2); Carbon Dioxide 16 mmol/L (22-32); Chloride 113 mmol/L (98-107); Estimated Glomerular Filt Rate > 60 mL/min (>60); Glucose 160 mg/dL (70-100); HEMOLYSIS < 15 (0-50); Magnesium 1.7 mg/dL (1.6-2.3); Potassium 4.1 mmol/L (3.4-5.1); Sodium 137 mmol/L (137-145)
[2023-04-15 04:39] LABS: Add Manual Diff / Slide Review NO; Basophils Absolute Auto 0 /uL (0-100); Basophils Percent Auto 0.2 % (0-2); Eosinophils Absolute Auto 0 /uL (0-450); Eosinophils Percent Auto 0.1 % (2-4); Hemoglobin 12.8 g/dL (12.0-16.0); Lymphocytes Absolute Auto 1200 /uL (1100-4500); Lymphocytes Percent Auto 7.2 % (25-40); Mean Corpuscular HGB Conc 32.8 % (30-36); Mean Corpuscular Hemoglobin 28.2 PG (26-34); Monocytes Absolute Auto 1300 /uL (0-900); Monocytes Percent Auto 7.2 % (3-14); Neutrophils Absolute Auto 14800 /uL (1500-7000); Neutrophils Percent Auto 85.3 % (50-75); Platelet Count 275 X10^3/uL (150-400); Red Blood Cell Count 4.53 X10^6/uL (4.0-5.2); Red Cell Distribution Width 13.6 % (11.6-14.8); White Blood Cell Count 17.4 X10^3/uL (4.5-11.0)
[2023-04-15 04:48] LABS: BUN Creatinine Ratio 21.3 (6-22); Blood Urea Nitrogen 13 mg/dL (7-17); Carbon Dioxide 15 mmol/L (22-32); Chloride 111 mmol/L (98-107); Estimated Glomerular Filt Rate > 60 mL/min (>60); Glucose 197 mg/dL (70-100); HEMOLYSIS 25 (0-50); Potassium 4.3 mmol/L (3.4-5.1); Sodium 134 mmol/L (137-145)
[2023-04-15 05:00] LABS: Hemoglobin A1C% w Est Avg Glu 11.9 % (4.0-6.0)
[2023-04-15] MEDS: INSULIN DRIP PREMIX 100 UNIT/100 ML PLAST..BAG IV (08:36)
[2023-04-15] MEDS: DEXTROSE 5%-0.45% NS 1,000 ML 100 ML IV (08:52)
--- NOTE | 2023-04-15 09:00 | CM.DANOTE ---
Reviewed EMR for pt's medical status and initial anticipated home d/c needs. Met with pt, her mother, and father at bedside to introduce self and role. Pt found to be alert, oriented, able to participate in visit. Payor: [employer] PCP:U/K Pt is a 18 year-old F (transgender to male). He is a type-1 diabetic who presented to the ED on 04/14 with altered mental status and hyperglycemia w/blood glucose over 600. He reports to have been busy with a project and recent travel during which he did not take his insulin properly, woke up at 1:00am with sharp/stabbing chest pain. ED evaluation dx him with DKA, he was started on IV fluids and admitted to the floor. He resides in his parents' home w/teen brother, is not employed, will plan to f/u with [facility] post-discharge. DCP will cont. to follow and assist with any further identified needs. Discharge Planning/Care Management CM Discharge Assessment Start: 04/15/23 08:51 Freq: Status: Active Protocol: Document 04/15/23 08:51 DPL (Rec: 04/15/23 08:59 DPL [id number]) Discharge Planning Assessment Assigned Logistics Vice President MILLY Kennedy Advance Directives? No History Provided By Patient,Medical Record Has Patient been admitted in last 30 No days? Prior Living Arrangements House Household Members family Independent with ADL's Yes Is patient alert and oriented? Yes Comment N/A Caregiver for Another No Comment [facility] Comment F/U [facility] Endocr[facility]ology Barriers to Discharge No Discharge Plan Home Transportation Arrangement Family in private vehicle. Referrals Initiated None needed Whiteboard Updated in Patient Room with Yes name and ext. # of Logistics Vice President Review Status In Process Please Provide Date Initial DC 04/15/23 Assessment Was Performed
[2023-04-15 09:20] LABS: BUN Creatinine Ratio 17.9 (6-22); Blood Urea Nitrogen 10 mg/dL (7-17); Calcium 8.5 mg/dL (8.4-10.2); Carbon Dioxide 17 mmol/L (22-32); Chloride 111 mmol/L (98-107); Estimated Glomerular Filt Rate > 60 mL/min (>60); Glucose 114 mg/dL (70-100); HEMOLYSIS 16 (0-50); Potassium 3.9 mmol/L (3.4-5.1); Sodium 135 mmol/L (137-145)
[2023-04-15] MEDS: PIPERACILLIN/TAZO 3.375 GM in SODIUM CHLORIDE 0.9% 100 ML IV ×2 (09:26→18:13)
[2023-04-15] MEDS: ESCITALOPRAM 10 MG TABLET PO (09:27)
[2023-04-15] MEDS: lamoTRIgine 100 MG TABLET 25 MG PO ×2 (09:27→21:30)
[2023-04-15 17:16] LABS: BUN Creatinine Ratio 20.6 (6-22); Blood Urea Nitrogen 14 mg/dL (7-17); Carbon Dioxide 11 mmol/L (22-32); Chloride 102 mmol/L (98-107); Estimated Glomerular Filt Rate > 60 mL/min (>60); Glucose 434 mg/dL (70-100); HEMOLYSIS < 15 (0-50); Potassium 4.4 mmol/L (3.4-5.1); Sodium 130 mmol/L (137-145)
--- NOTE | 2023-04-15 18:05 | P.PN_ITS ---
Subjective Subjective Interval history: 18 F admitted with DKA. Gap closed, patient felt improved. Counseled on management options, despite old infusion site patient wished to resume pump with monitoring. She re-developed worsening acidosis and anion gap. Restarted drip, patient advised to remove infusion set and insulin. Exam Vital Signs (past 8 hours): - 04/15/23 10:30 04/15/23 11:00 04/15/23 12:01 Temperature Pulse Rate 90 83 96 H Respiratory Rate 27 H 21 Blood Pressure Pulse Oximetry Oxygen Flow Rate 04/15/23 12:30 04/15/23 13:00 04/15/23 16:52 Temperature 98.2 F Pulse Rate 90 94 H 80 Respiratory Rate 18 20 16 Blood Pressure 128/65 Pulse Oximetry 100 Oxygen Flow Rate 0 Oxygen Delivery Method Room Air Oxygen Flow Rate 0 Narrative Exam Narrative: GENERAL: in no acute distress. HEENT: Head atraumatic,EOMI, pupils reactive, face symmetric, moist mucous membranes CARDIOVASCULAR: Tachycardic regular no murmur RESPIRATORY: Breath sounds equal bilaterally, no wheezes rales or rhonchi. Respiratory rate has settle to normal. ABDOMEN: Soft, nontender. Normoactive bowel sounds all 4 quadrants. No guarding or rebound. EXTREMITIES: Normal range of motion, no clubbing or edema. Neurovascularly intact NEUROLOGICAL: Alert and oriented x4.Normal gait and speech. Moving all extremities SKIN: Warm, dry, no laceration, no petechiae, no rashes or lesions. Objective Labs 04/15/23 04:10 04/15/23 16:55 Labs: Laboratory Results - last 24 hr 04/14/23 04/15/23 04/15/23 21:30 01:08 01:20 WBC RBC Hgb Hct MCV MCH MCHC RDW Plt Count Neut % (Auto) Lymph % (Auto) [place] % (Auto) Eos % (Auto) Baso % (Auto) Neut # (Auto) Lymph # (Auto) [place] # (Auto) Eos # (Auto) Baso # (Auto) VBG pH 7.34 VBG pCO2 28.7 L VBG pO2 93 H VBG HCO3 16 L VBG Total CO2 16 L VBG O2 Saturation 97 H VBG Base Excess -10.0 L FiO2 21 Sodium 139 137 Potassium 4.3 4.1 Chloride 114 H 113 H Carbon Dioxide 15 L 16 L BUN 16 14 Creatinine 0.65 0.60 Estimated GFR > 60 > 60 BUN/Creatinine Ratio 24.6 H 23.3 H Glucose 176 H 160 H Hemoglobin A1c Lactate 1.4 Calcium 8.7 8.8 Magnesium 1.7 04/15/23 04/15/23 04/15/23 04:10 08:58 16:55 WBC 17.4 H RBC 4.53 Hgb 12.8 Hct 39.0 MCV 86.0 D MCH 28.2 MCHC 32.8 RDW 13.6 Plt Count 275 Neut % (Auto) 85.3 H Lymph % (Auto) 7.2 L [place] % (Auto) 7.2 Eos % (Auto) 0.1 L Baso % (Auto) 0.2 Neut # (Auto) 94412 H Lymph # (Auto) 1200 [place] # (Auto) 1300 H Eos # (Auto) 0 Baso # (Auto) 0 VBG pH VBG pCO2 VBG pO2 VBG HCO3 VBG Total CO2 VBG O2 Saturation VBG Base Excess FiO2 Sodium 134 L 135 L 130 L Potassium 4.3 3.9 4.4 Chloride 111 H 111 H 102 Carbon Dioxide 15 L 17 L 11 L BUN 13 10 14 Creatinine 0.61 0.56 0.68 Estimated GFR > 60 > 60 > 60 BUN/Creatinine Ratio 21.3 17.9 20.6 Glucose 197 H 114 H 434 H D Hemoglobin A1c 11.9 H Lactate 1.0 Calcium 9.0 8.5 9.0 Magnesium [facility] Social History household members: family Smoking Status: Never smoker Assessment & Plan Assessment & Plan narrative: # DKA - patient started on insulin infusion. Gap closed and acidosis improved with drip. Patient wished to resume insulin pump therapy, she was resistant to changing it today despite my recommendations. We discussed that I would continue to monitor her blood sugar. On repeat blood sugar testing she had worsening hyperglycemia. BMP was rechecked with worsening of acidosis and new anion gap. Insulin drip reordered and patient instructed to remove infusion set. - will transition to lantus when gap re-closes while patient works on access to insulin and new pump supplies. Should she obtain pump supplies and new insulin can consider restarting. # Type 1 diabetes - normally on insulin pump - while in hospital provide sliding scale and hold use of pump - Hb A1Cs have been greater then 13 per patient on last two measurements, per patient she has just not been taking care of herself # concern for infection - elevated WBC 31.4 but improving. - blood cultures pending -covered with Zosyn for now, if no further worsening will stop antibiotics tomorrow as workup has been unremarkable. # anxiety/depression - treated with escitalopram and lamotrigine, patient finds they are of benefit - continue CODE: full code DVT: not needed Surrogate decision makers : parents Patient admitted as ICU. I spent 40 minutes providing critical care management this patient. This excludes time spent in performing separately billed procedures. Time Spent With Patient Time with patient: 70 minutes or more, with 50% spent counseling/coordinating Quality VTE Deep Vein Thrombosis/Pulmonary Embolism Present on Admission: No
--- NOTE | 2023-04-15 18:54 | PC.NURSE ---
Day Shift Note Off insulin gtt at 1200 which was 2 hours after pt replaced own subcut pump to right hip at regular basal rate (device gives basal rate as 43 units in 24 hours). Plan for pt to bolus dose based on blood sugars and carbs eaten per home routine. At 1645 CBG 438 and reported to MD, order for BMP received and was drawn out of midline. BMP showed gap of 17 and order received to place pt back on insulin gtt and to follow DKA protocol. Pt instructed to removed insulin pump when placed back on pump which was done. Pt reports that pump didn't feel like it was working all the way and that the site where the pump was placed doesn't always work. Reviewed importance of rotating sites and on changing sites immediately in the future if site not working for insulin delivery. Call light within reach, using appropriately to make needs known. Mother at bedside.
[2023-04-15 22:47] LABS: BUN Creatinine Ratio 21.7 (6-22); Blood Urea Nitrogen 13 mg/dL (7-17); Calcium 9.1 mg/dL (8.4-10.2); Carbon Dioxide 16 mmol/L (22-32); Chloride 104 mmol/L (98-107); Estimated Glomerular Filt Rate > 60 mL/min (>60); Glucose 218 mg/dL (70-100); HEMOLYSIS 18 (0-50); Potassium 3.6 mmol/L (3.4-5.1); Sodium 132 mmol/L (137-145)
[2023-04-16] VITALS (7 sets, daily range): BP systolic 105–115; BP diastolic 58–76; PULSE 60–103; RESP 14–24; TEMP 36.9–37.1; O2SAT 100
[2023-04-16 02:10] LABS: BUN Creatinine Ratio 18.2 (6-22); Blood Urea Nitrogen 10 mg/dL (7-17); Calcium 8.9 mg/dL (8.4-10.2); Carbon Dioxide 21 mmol/L (22-32); Chloride 106 mmol/L (98-107); Estimated Glomerular Filt Rate > 60 mL/min (>60); Glucose 150 mg/dL (70-100); HEMOLYSIS 29 (0-50); Potassium 3.5 mmol/L (3.4-5.1); Sodium 133 mmol/L (137-145)
[2023-04-16] MEDS: POTASSIUM CHLORIDE 20 MEQ TAB 40 MEQ PO (02:53)
[2023-04-16] MEDS: PIPERACILLIN/TAZO 3.375 GM in SODIUM CHLORIDE 0.9% 100 ML IV (02:53)
[2023-04-16] MEDS: INSULIN PUMP 1 REQUEST MISC (06:09)
[2023-04-16 06:30] LABS: Add Manual Diff / Slide Review NO; Basophils Absolute Auto 100 /uL (0-100); Basophils Percent Auto 0.5 % (0-2); Eosinophils Absolute Auto 100 /uL (0-450); Eosinophils Percent Auto 1.1 % (2-4); Hematocrit 36.3 % (36-46); Hemoglobin 12.3 g/dL (12.0-16.0); Lymphocytes Absolute Auto 1900 /uL (1100-4500); Lymphocytes Percent Auto 17.2 % (25-40); Mean Corpuscular Volume 85.3 fL (80-100); Monocytes Absolute Auto 1000 /uL (0-900); Monocytes Percent Auto 9.5 % (3-14); Neutrophils Absolute Auto 7800 /uL (1500-7000); Neutrophils Percent Auto 71.7 % (50-75); Platelet Count 237 X10^3/uL (150-400); Red Blood Cell Count 4.26 X10^6/uL (4.0-5.2); Red Cell Distribution Width 13.5 % (11.6-14.8); White Blood Cell Count 10.9 X10^3/uL (4.5-11.0)
[2023-04-16 06:43] LABS: BUN Creatinine Ratio 16.9 (6-22); Blood Urea Nitrogen 10 mg/dL (7-17); Calcium 8.8 mg/dL (8.4-10.2); Carbon Dioxide 22 mmol/L (22-32); Chloride 106 mmol/L (98-107); Estimated Glomerular Filt Rate > 60 mL/min (>60); Glucose 107 mg/dL (70-100); Lactate (Lactic Acid) 0.6 mmol/L (0.7-2.1); Sodium 135 mmol/L (137-145)
[2023-04-16 06:47] LABS: HEMOLYSIS 67 (0-50); Potassium 4.1 mmol/L (3.4-5.1)
--- NOTE | 2023-04-16 06:59 | PC.NURSE ---
shift production associate RN note, Pt A&Ox4, RADHA, JAZ assist to bathroom, VSS, afebrile, SR 80s, lungs clear on RA, voiding QS, skin warm and dry, periph IV and midline to SUNIL patent, initially on insulin gtt with fluids per protocol, Q4h BMP results called to , orders to stop insulin gtt at 0300 and pt placed her own insulin pump to L hip/thigh area at base rate, CBGs WDL and pt asymptomatic, continue to monitor
--- NOTE | 2023-04-16 08:57 | P.DS_ITS ---
History of Present Illness History of Present Illness Date Patient Seen: 04/16/23 Time Patient Seen: 08:57 Chief complaint: dka Narrative: Per admitting provider, Patient is a 18-year-old female history of insulin-dependent diabetes presenting today with altered mental status and elevated glucose. He reports that she has been busy helping set up for a posterior event and has not been taking care of herself. At 1:00 a.m. she did not feel very well checked her glucose and it was 550. She now feels like she is having extreme chest pain she describes it as sharp and stabbing. She admits to smoking marijuana. She is previously been in the ED for alcohol intoxication. Admits to mental problems but unclear exactly what those are. She denies being sick no fever or chills no cough shortness of breath her superior she is having a FT orbital pain nausea or vomiting. Patient went to [place] and mom looked at the insulin pump and reports that she did not get insulin April 04 through April 11. And since then she has only been getting anywhere from 7-15 units subcutaneously. Patient admitted with concern of DKA. Discharge Providers Provider Date of admission: 04/14/23 07:36 Discharge Date: 04/16/23 Primary care physician: Doctor Harjeet MD Discharge provider: Todd John DO Summary Hospital Course Discharge Diagnosis: # DKA with acute metabolic encephalopathy. # Type 1 diabetes # concern for infection, sepsis ruled out # anxiety/depression Hospital Course: This is a 18 year old female with PMH of DM1 on insulin pump who was admitted with confusion and DKA based on initial labs. She was started on insulin infusion with improvement in mentation, acidosis and anion gap. She was started on empiric antibiotics given marked leukocytosis, though cultures were negative and is likely due to stress response. No antibiotics were recommended on discharge. She wanted to resume her pump that was present on admission, despite recommendation to change infusion site. This was monitored and her glucose bree and repeat BMP showed she moved back into DKA and her insulin infusion was restarted. She then changed her infusion set and retried insulin pump with adequate control after. She was educated on insulin pump treatment and instructed that if there are any difficulties she should change her insulin reservoir and infusion set. No changes are recommended otherwise on discharge. Time Spent with Patient Time spent: Greater than 30 minutes Exam Vital Signs (past 8 hours): - 04/16/23 02:00 04/16/23 02:00 04/16/23 04:00 Temperature Pulse Rate 63 66 Respiratory Rate 16 14 Blood Pressure 111/72 Pulse Oximetry Oxygen Flow Rate 0 04/16/23 04:00 04/16/23 06:00 04/16/23 06:00 Temperature 98.7 F Pulse Rate 82 Respiratory Rate 16 Blood Pressure 113/67 115/76 Pulse Oximetry 100 Oxygen Flow Rate 0 0 04/16/23 07:00 Temperature Pulse Rate 77 Respiratory Rate 16 Blood Pressure Pulse Oximetry Oxygen Flow Rate Oxygen Delivery Method Room Air Oxygen Flow Rate 0 Narrative Exam Narrative: GENERAL: in no acute distress. HEENT: Head atraumatic,EOMI, pupils reactive, face symmetric, moist mucous membranes CARDIOVASCULAR: RRR EXTREMITIES: Normal range of motion, no clubbing or edema. Neurovascularly intact NEUROLOGICAL: Alert and oriented x4.Normal gait and speech. Moving all extremities SKIN: Warm, dry, no laceration, no petechiae, no rashes or lesions. Objective Labs 04/16/23 06:15 04/16/23 06:15 Labs: Laboratory Results - last 24 hr 04/15/23 04/15/23 04/15/23 08:58 16:55 22:10 WBC RBC Hgb Hct MCV MCH MCHC RDW Plt Count Neut % (Auto) Lymph % (Auto) [place] % (Auto) Eos % (Auto) Baso % (Auto) Neut # (Auto) Lymph # (Auto) [place] # (Auto) Eos # (Auto) Baso # (Auto) Sodium 135 L 130 L 132 L Potassium 3.9 4.4 3.6 Chloride 111 H 102 104 Carbon Dioxide 17 L 11 L 16 L BUN 10 14 13 Creatinine 0.56 0.68 0.60 Estimated GFR > 60 > 60 > 60 BUN/Creatinine Ratio 17.9 20.6 21.7 Glucose 114 H 434 H D 218 H D Lactate Calcium 8.5 9.0 9.1 04/16/23 04/16/23 01:50 06:15 WBC 10.9 RBC 4.26 Hgb 12.3 Hct 36.3 MCV 85.3 MCH 29.0 MCHC 34.0 RDW 13.5 Plt Count 237 Neut % (Auto) 71.7 Lymph % (Auto) 17.2 L [place] % (Auto) 9.5 Eos % (Auto) 1.1 L Baso % (Auto) 0.5 Neut # (Auto) 7800 H Lymph # (Auto) 1900 [place] # (Auto) 1000 H Eos # (Auto) 100 Baso # (Auto) 100 Sodium 133 L 135 L Potassium 3.5 4.1 Chloride 106 106 Carbon Dioxide 21 L 22 BUN 10 10 Creatinine 0.55 0.59 Estimated GFR > 60 > 60 BUN/Creatinine Ratio 18.2 16.9 Glucose 150 H 107 H Lactate 0.6 L Calcium 8.9 8.8 PFSH Social History household members: family Smoking Status: Never smoker Discharge Plan Discharge Plan Patient Disposition: Home Provider Discharge Comment: You were admitted to the hospital with DKA. You had a high WBC and were given antibiotics, and no infection was found. This was most likely due to stress response. I do not think you need any more antibiotic therapy as your labs improved to normal today. Continue insulin pump therapy at home, no changes recommended. Discharge orders & Medications Prescriptions: Continued lamotrigine 25 mg tablet 25 mg PO 2XD escitalopram oxalate 10 mg tablet 10 mg PO DAILY Follow up/Referrals: Doctor Cosby MD [Primary Care Provider] - Diet/Activity/Treatments Diet: Diet as Tolerated and Carb-consistent/Diabetic Activity: As tolerated no restrictions. Visit Report/Discharge Packet Instructions: DI for Diabetic Ketoacidosis Stand Alone Forms: Patient Portal/API, Stroke Signs & Symptoms Discharge Data Primary Care Provider: Doctor Harjeet Quality VTE Deep Vein Thrombosis/Pulmonary Embolism Present on Admission: No
--- NOTE | 2023-04-16 09:08 | CM.DPC ---
DCP Cont. Reviewed EMR for status updates. Pt medically cleared to d/c home today, her parents will provide transport. No further DCP needs identified at this time.
[2023-04-16] MEDS: ESCITALOPRAM 10 MG TABLET PO (09:28)
[2023-04-16] MEDS: lamoTRIgine 100 MG TABLET 25 MG PO (09:28)
[2023-04-16 13:47] LABS: Osmolality, Serum 293 mOsmol/kg (275-295)
[2023-04-17 14:35] LABS: Osmolality, Serum 284 mOsmol/kg (275-295)
[2023-05-14 12:06] LABS: Fractionated Inspired Oxygen 21
== END 2023-04-16 10:30 | disposition home or self-care (01) | DRG 420 ==
LOC: ED 06:27 → AC 07:37 → ICU 11:38
PROVIDERS: Anesthesiology Critical Care Medicine; Internal Medicine; Internal Medicine Pulmonary Disease; Admitting Provider Neuromusculoskeletal Medicine, Sports Medicine; Emergency Provider Emergency Medicine; Referring Provider Emergency Medicine; Visit Provider Neuromusculoskeletal Medicine, Sports Medicine
DX: E10.10 Type 1 diabetes mellitus with ketoacidosis without coma (principal); F41.9 Anxiety disorder, unspecified; G93.41 Metabolic encephalopathy; F32.A Depression, unspecified; E86.0 Dehydration; N17.9 Acute kidney failure, unspecified; Z96.41 Presence of insulin pump (external) (internal); Z91.148 Patient's other noncompliance with medication regimen for other reason
CPT/HCPCS: 0241U; 36415; 36592; 71045; 80048; 80053; 80305; 80320; 81003; 81015; 81025; 82009; 82550; 82805; 82962; 83036; 83605; 83690; 83735; 83930; 84145; 84484; 84702; 85007; 85025; 87040; 87797; 93005; 96361; 96365; 96366; 96368; 96375; 99233; 99285; 99291; J1885; J2543

== ENCOUNTER → 2024-08-27 11:58 | Outpatient (CLI) | payer OTHER, SELFPAY ==
[2023-04-15 09:00] VITALS: BMI 26.4
[2024-08-27 14:24] LABS: Creatinine Urine Random 292.75 mg/dL
[2024-08-27 14:30] LABS: Microalbumin Urine Random 10.3 mg/dL (0-1.6)
== END ==
PROVIDERS: Referring Provider Internal Medicine Endocrinology, Diabetes & Metabolism; Visit Provider Internal Medicine Endocrinology, Diabetes & Metabolism
DX: E10.9 Type 1 diabetes mellitus without complications (principal)
CPT/HCPCS: 82043; 82570